=== PATIENT | female | born 2000 | race Caucasian/White ===

== ENCOUNTER 2019-02-21 17:40 | Emergency (ER) | payer MEDICAID, OTHER ==
[2019-02-21] MEDS ORDERED: Sodium Chloride 0.9% 1000 ML 1,000 ML IV STA (18:15)
[2019-02-21] MEDS ORDERED: TORAdol 30 mg Injection IV ONE ×2 (18:19→21:08)
[2019-02-21] MEDS ORDERED: Sodium Chloride 0.9% 1000 ML 1,000 ML ONE (18:35)
[2019-02-21] MEDS ORDERED: TORAdol 30 mg Injection ONE ×2 (18:35→21:16)
--- NOTE | 2019-02-21 18:42 | ERPHSYRPT ---
- History of Present Illness Source: patient Exam Limitations: no limitations Patient Subjective Stated Complaint: pt here for headach,runny nose ,nausea,sob at times today, no fever, Triage Nursing Assessment: pt walked in, alert, resp easy, skin w/d/p. moves all ext well, no edema. no cough Timing/Duration: yesterday Cough Quality/Degree: moderate, dry cough Possible Cause: no prior episodes Modifying Factors: Improves With: coughing Associated Symptoms: fever, chills, chest pain/soreness, cough, facial pain, headache, lightheadedness, muscle aches, nasal congestion, nasal drainage, sinus infection, sore throat, No shortness of breath Hx Influenza Vaccination/Date Given: No Hx Pneumococcal Vaccination/Date Given: No Immunizations Up to Date: Yes <MARCY HELMS - Last Filed: 02/21/19 18:37> <KERWIN OCONNOR - Last Filed: 02/21/19 22:20> - History of Present Illness Time Seen by Provider: 02/21/19 18:00 Physician History: 18 years old female presented to the ER with chief complaint of URI symptoms since yesterday. Patient about symptoms started with sinus congestion mild runny nose and frontal headache last night later on with mild scratchiness in the throat, postnasal drip and minimal coughing. She also has a low-grade fever or chills. Patient also reports to 3 episodes of loose stool but denies any watery stool or hematochezia. No vomiting. No abdominal pain. Patient reports this morning she woke up with more extensive frontal headache without any visual disturbance, numbness tingling or weakness. No pain in the neck or difficulty movements of the neck. Denies any sick contact. didnot have flu shot. (MARCY HELMS) Allergies/Adverse Reactions: No Known Drug Allergies Allergy (Verified 02/21/19 17:57) Home Medications: No Reportable Medications [No Reported Medications] 02/21/19 [History] - Review of Systems Constitutional: Fever, Chills, Fatigue Eyes: No Symptoms Ears, Nose, & Throat: Nose Congestion, Throat Pain Respiratory: Cough Cardiac: No Symptoms Abdominal/Gastrointestinal: Nausea, Diarrhea Genitourinary Symptoms: No Symptoms Musculoskeletal: Myalgias Skin: No Symptoms Neurological: No Symptoms Psychological: No Symptoms Endocrine: No Symptoms Hematologic/Lymphatic: No Symptoms Immunological/Allergic: No Symptoms <MARCY HELMS - Last Filed: 02/21/19 18:37> - Past Medical History Pertinent Past Medical History: No Psycho-Social History: Depression - Past Surgical History Past Surgical History: Yes Musculoskeletal: Orthopedic Surgery Other Surgical History: ingrown toe nail - Social History Smoking Status: Current some day smoker Exposure to second hand smoke: Yes Drug Use: none Patient Lives Alone: No - Female History Hx Last Menstrual Period: now Hx Now: No <MARCY HELMS - Last Filed: 02/21/19 18:37> - Physical Exam General Appearance: no apparent distress Eye Exam: PERRL/EOMI, eyes nml inspection Ears, Nose, Throat Exam: normal ENT inspection, TMs normal, pharyngeal erythema Neck Exam: normal inspection, non-tender, supple, full range of motion, No meningismus Respiratory Exam: normal breath sounds, lungs clear, No respiratory distress Cardiovascular Exam: regular rate/rhythm, normal heart sounds, normal peripheral pulses Gastrointestinal/Abdomen Exam: soft, normal bowel sounds, No tenderness, No distention Back Exam: normal inspection Extremity Exam: normal inspection, normal range of motion Neurologic Exam: alert, oriented x 3, cooperative Skin Exam: normal color SpO2 Interpretation: normal SpO2: 100 O2 Delivery: Room Air <JUAN HELMSR - Last Filed: 02/21/19 18:37> - Physical Exam Ears, Nose, Throat Exam: other (tender maxillary sinuses with inflamed turbinates but not purulent) Neck Exam: lymphadenopathy Respiratory Exam: airway intact <KERWIN OCONNOR - Last Filed: 02/21/19 22:20> - Nursing Vital Signs Nursing Vital Signs: Initial Vital Signs Temperature 99.3 F 02/21/19 17:52 Pulse Rate 85 02/21/19 17:52 Respiratory Rate 16 02/21/19 17:52 Blood Pressure 147/78 02/21/19 17:52 O2 Sat by Pulse Oximetry 99 02/21/19 17:52 Pain Scale Pain Intensity 6 - Radiology Exams Chest X-ray Interpretation: Reviewed by me, No Infiltrates <KERWIN OCONNOR - Last Filed: 02/21/19 22:20> Ordered Tests: Active Orders 24 hr Category Date Time Status PO Fluid Challenge STAT Care 02/21/19 20:20 Active CHEST 2 VIEWS (PA AND LAT) Stat Exams 02/21/19 18:16 Completed CBC W DIFF Stat Lab 02/21/19 18:48 Completed CMP Stat Lab 02/21/19 18:48 Completed HCG,QUALITATIVE URINE Stat Lab 02/21/19 18:45 Completed LIPASE Stat Lab 02/21/19 18:48 Completed Lactic Acid Stat Lab 02/21/19 20:28 Completed UA W/RFX UR CULTURE Stat Lab 02/21/19 18:45 Completed Medication Summary Discontinued Medications Generic Name Dose Route Start Last Admin Trade Name Garyq PRN Reason Stop Dose Admin Diphenhydramine HCl 50 mg 02/21/19 21:08 02/21/19 21:18 Benadryl 50 Mg/Ml IV 02/21/19 21:09 50 mg STAT ONE Administration Diphenhydramine HCl Confirm 02/21/19 21:16 Benadryl 50 Mg/Ml Administered 02/21/19 21:17 Dose 50 mg .ROUTE .STK-MED ONE Sodium Chloride 1,000 mls @ 999 mls/hr 02/21/19 18:15 02/21/19 18:38 Sodium Chloride 0.9% 1000 Ml IV 02/21/19 19:15 999 mls/hr .Q1H1M STA Administration Sodium Chloride Confirm 02/21/19 18:35 Sodium Chloride 0.9% 1000 Ml Administered 02/21/19 18:36 Dose 1,000 mls @ ud .ROUTE .STK-MED ONE Ketorolac Tromethamine 30 mg 02/21/19 18:19 02/21/19 18:38 Toradol 30 Mg Injection IV 02/21/19 18:20 30 mg STAT ONE Administration Ketorolac Tromethamine Confirm 02/21/19 18:35 Toradol 30 Mg Injection Administered 02/21/19 18:36 Dose 30 mg .ROUTE .STK-MED ONE Ketorolac Tromethamine 30 mg 02/21/19 21:08 02/21/19 21:18 Toradol 30 Mg Injection IV 02/21/19 21:09 30 mg STAT ONE Administration Ketorolac Tromethamine Confirm 02/21/19 21:16 Toradol 30 Mg Injection Administered 02/21/19 21:17 Dose 30 mg .ROUTE .STK-MED ONE Lab/Rad Data: Laboratory Result Diagrams 02/21/19 18:48 02/21/19 18:48 Laboratory Results 02/21/19 02/21/19 02/21/19 Range/Units 20:28 18:48 18:48 WBC (4.0-10.5) K/mm3 RBC (4.1-5.4) M/mm3 Hgb (12.0-16.0) gm/dl Hct (35-47) % MCV (78-100) fl MCH (26-32) pg MCHC (32-36) g/dl RDW (11.5-14.0) % Plt Count (150-450) K/mm3 MPV (6-9.5) fl Gran % (36.0-66.0) % Eos # (Auto) (0-0.5) Absolute Lymphs (auto) (1.0-4.6) Absolute Monos (auto) (0.0-1.3) Lymphocytes % (24.0-44.0) % Monocytes % (0.0-12.0) % Eosinophils % (0.00-5.0) % Basophils % (0.0-0.4) % Absolute Granulocytes (1.4-6.9) Basophils # (0-0.4) Sodium 143 (137-145) mmol/L Potassium 4.0 (3.5-5.1) mmol/L Chloride 107 (98-107) mmol/L Carbon Dioxide 27 (22-30) mmol/L Anion Gap 13.9 (5-15) MEQ/L BUN 7 (7-17) mg/dL Creatinine 0.60 (0.52-1.04) mg/dL Estimated GFR > 60.0 ML/MIN Glucose 92 (74-106) mg/dL Lactic Acid 0.8 (0.4-2.0) Calcium 9.4 (8.4-10.2) mg/dL Total Bilirubin 0.20 (0.2-1.3) mg/dL AST 20 (14-36) U/L ALT 16 (0-35) U/L Alkaline Phosphatase 102 (38-126) U/L Serum Total Protein 8.0 (6.3-8.2) g/dL Albumin 4.2 (3.5-5.0) g/dL Lipase 62 (23-300) U/L Urine Color (YELLOW) Urine Appearance (CLEAR) Urine pH (5-6) Ur Specific [place] (1.005-1.025) Urine Protein (Negative) Urine Ketones (NEGATIVE) Urine Blood (0-5) Yang/ul Urine Nitrite (NEGATIVE) Urine Bilirubin (NEGATIVE) Urine Urobilinogen (0-1) mg/dL Ur Leukocyte Esterase (NEGATIVE) U Epithel Cells (Auto) (FEW) /HPF Urine Mucus (Auto) (NEGATIVE) /HPF Urine Culture Reflexed (NO) Urine Glucose (NEGATIVE) mg/dL Urine HCG, Qual (Negative) Influenza Type A Ag (NEGATIVE) Influenza Type B Ag (NEGATIVE) RSV (PCR) (Negative) Group A Strep Antibody (NEGATIVE) 02/21/19 02/21/19 02/21/19 Range/Units 18:48 18:45 18:45 WBC 8.0 (4.0-10.5) K/mm3 RBC 4.59 (4.1-5.4) M/mm3 Hgb 13.1 (12.0-16.0) gm/dl Hct 39.8 (35-47) % MCV 86.7 (78-100) fl MCH 28.5 (26-32) pg MCHC 32.9 (32-36) g/dl RDW 13.8 (11.5-14.0) % Plt Count 224 (150-450) K/mm3 MPV 11.3 H (6-9.5) fl Gran % 75.3 H (36.0-66.0) % Eos # (Auto) 0.07 (0-0.5) Absolute Lymphs (auto) 1.31 (1.0-4.6) Absolute Monos (auto) 0.58 (0.0-1.3) Lymphocytes % 16.4 L (24.0-44.0) % Monocytes % 7.3 (0.0-12.0) % Eosinophils % 0.9 (0.00-5.0) % Basophils % 0.1 (0.0-0.4) % Absolute Granulocytes 6.01 (1.4-6.9) Basophils # 0.01 (0-0.4) Sodium (137-145) mmol/L Potassium (3.5-5.1) mmol/L Chloride (98-107) mmol/L Carbon Dioxide (22-30) mmol/L Anion Gap (5-15) MEQ/L BUN (7-17) mg/dL Creatinine (0.52-1.04) mg/dL Estimated GFR ML/MIN Glucose (74-106) mg/dL Lactic Acid (0.4-2.0) Calcium (8.4-10.2) mg/dL Total Bilirubin (0.2-1.3) mg/dL AST (14-36) U/L ALT (0-35) U/L Alkaline Phosphatase (38-126) U/L Serum Total Protein (6.3-8.2) g/dL Albumin (3.5-5.0) g/dL Lipase (23-300) U/L Urine Color COLORLESS (YELLOW) Urine Appearance CLEAR (CLEAR) Urine pH 7.0 (5-6) Ur Specific [place] 1.002 (1.005-1.025) Urine Protein NEGATIVE (Negative) Urine Ketones NEGATIVE (NEGATIVE) Urine Blood NEGATIVE (0-5) Yang/ul Urine Nitrite NEGATIVE (NEGATIVE) Urine Bilirubin NEGATIVE (NEGATIVE) Urine Urobilinogen NEGATIVE (0-1) mg/dL Ur Leukocyte Esterase NEGATIVE (NEGATIVE) U Epithel Cells (Auto) NONE (FEW) /HPF Urine Mucus (Auto) SLIGHT (NEGATIVE) /HPF Urine Culture Reflexed NO (NO) Urine Glucose NEGATIVE (NEGATIVE) mg/dL Urine HCG, Qual NEGATIVE (Negative) Influenza Type A Ag (NEGATIVE) Influenza Type B Ag (NEGATIVE) RSV (PCR) (Negative) Group A Strep Antibody (NEGATIVE) 02/21/19 Range/Units 18:40 WBC (4.0-10.5) K/mm3 RBC (4.1-5.4) M/mm3 Hgb (12.0-16.0) gm/dl Hct (35-47) % MCV (78-100) fl MCH (26-32) pg MCHC (32-36) g/dl RDW (11.5-14.0) % Plt Count (150-450) K/mm3 MPV (6-9.5) fl Gran % (36.0-66.0) % Eos # (Auto) (0-0.5) Absolute Lymphs (auto) (1.0-4.6) Absolute Monos (auto) (0.0-1.3) Lymphocytes % (24.0-44.0) % Monocytes % (0.0-12.0) % Eosinophils % (0.00-5.0) % Basophils % (0.0-0.4) % Absolute Granulocytes (1.4-6.9) Basophils # (0-0.4) Sodium (137-145) mmol/L Potassium (3.5-5.1) mmol/L Chloride (98-107) mmol/L Carbon Dioxide (22-30) mmol/L Anion Gap (5-15) MEQ/L BUN (7-17) mg/dL Creatinine (0.52-1.04) mg/dL Estimated GFR ML/MIN Glucose (74-106) mg/dL Lactic Acid (0.4-2.0) Calcium (8.4-10.2) mg/dL Total Bilirubin (0.2-1.3) mg/dL AST (14-36) U/L ALT (0-35) U/L Alkaline Phosphatase (38-126) U/L Serum Total Protein (6.3-8.2) g/dL Albumin (3.5-5.0) g/dL Lipase (23-300) U/L Urine Color (YELLOW) Urine Appearance (CLEAR) Urine pH (5-6) Ur Specific [place] (1.005-1.025) Urine Protein (Negative) Urine Ketones (NEGATIVE) Urine Blood (0-5) Yang/ul Urine Nitrite (NEGATIVE) Urine Bilirubin (NEGATIVE) Urine Urobilinogen (0-1) mg/dL Ur Leukocyte Esterase (NEGATIVE) U Epithel Cells (Auto) (FEW) /HPF Urine Mucus (Auto) (NEGATIVE) /HPF Urine Culture Reflexed (NO) Urine Glucose (NEGATIVE) mg/dL Urine HCG, Qual (Negative) Influenza Type A Ag NEGATIVE (NEGATIVE) Influenza Type B Ag NEGATIVE (NEGATIVE) RSV (PCR) NEGATIVE (Negative) Group A Strep Antibody NEGATIVE (NEGATIVE) - Progress Blood Culture(s) Obtained: No <MARCY HELMS - Last Filed: 02/21/19 18:37> - Progress Progress: improved, re-examined Air Movement: good Antibiotics given: No Counseled pt/family regarding: lab results, diagnosis, need for follow-up, rad results <KERWIN OCONNOR - Last Filed: 02/21/19 22:20> - Progress Progress Note: 18 years old is evaluated for URI symptoms. She is given IV fluid and Toradol. Workup is pending at present, care is transferred to Dr. Oconnor due to end of my shift. 02/21/19 18:51 (MARCY HELMS) 02/21/19 19:08 pt is taken over at change of shift from Dr Helms after discussion of pending labs and cxr , seems well and will also try po challenge later.abd nontender without peritoneal signs or rebound 02/21/19 21:08 pt is better but just has headache and runny nose now - percussion of the sinuses reproduces the headache pain each time 02/21/19 22:12 the pt was observed to be certain the headache was resolving and this required some additional time in ER; 02/21/19 22:16 (KERWIN OCONNOR) <MARCY HELMS - Last Filed: 02/21/19 18:37> - Departure Departure Disposition: Home Critical Care Time: No <KERWIN OCONNOR - Last Filed: 02/21/19 22:20> - Departure Clinical Impression: Sinusitis, viral like symptoms Condition: Good Referrals: DOCTOR,NO FAMILY [Primary Care Provider] - Instructions: Sinusitis, Adult (DC), Viral Syndrome (DC) Additional Instructions: The initial treatment of mild sinus infections is decongestants and waiting prior to antibiotics as they are most often not needed. followup with your doctor to continue workup if symptoms persist and return meantime if not improving or any symptoms of concern such as fever, vomiting, dizziness or other concerns. followup with your for your slightly elevated blood pressure as well;
[2019-02-21 19:04] LABS: Absolute Neutrophil Ct (ANC) 6.01 (1.4-6.9); BASOPHIL % 0.1 % (0.0-0.4); Basophil (Absolute #) 0.01 (0-0.4); Eosinophil % 0.9 % (0.00-5.0); Eosinophil (Absolute #) 0.07 (0-0.5); Hematocrit 39.8 % (35-47); Hemoglobin 13.1 gm/dl (12.0-16.0); Lymphocyte (Absolute #) 1.31 (1.0-4.6); Lymphocytes % 16.4 % (24.0-44.0); Mean Cell Volume 86.7 fl (78-100); Mean Corpuscular Hemoglobin 28.5 pg (26-32); Mean Corpuscular Hgb Concent. 32.9 g/dl (32-36); Mean Platelet Volume 11.3 fl (6-9.5); Monocyte (Absolute #) 0.58 (0.0-1.3); Monocytes % 7.3 % (0.0-12.0); Neutrophil % 75.3 % (36.0-66.0); Platelet Count 224 K/mm3 (150-450); Red Blood Count 4.59 M/mm3 (4.1-5.4); Red Cell Distribution Width 13.8 % (11.5-14.0)
[2019-02-21 19:16] LABS: Appearance CLEAR (CLEAR); Bilirubin NEGATIVE (NEGATIVE); Blood NEGATIVE Ery/ul (0-5); Glucose NEGATIVE (NEGATIVE); Ketones NEGATIVE (NEGATIVE); Leukocyte Esterase NEGATIVE (NEGATIVE); Mucus SLIGHT /HPF (NEGATIVE); Nitrite NEGATIVE (NEGATIVE); Protein,Urine Dip NEGATIVE (Negative); Specific Gravity 1.002 (1.005-1.025); Urobilinogen NEGATIVE mg/dL (0-1)
[2019-02-21 19:16] LABS: ALBUMIN 4.2 g/dL (3.5-5.0); ALKALINE PHOSPHATASE 102 U/L (38-126); ANION GAP 13.9 MEQ/L (5-15); BLOOD UREA NITROGEN 7 mg/dL (7-17); CHLORIDE 107 mmol/L (98-107); Calcium 9.4 mg/dL (8.4-10.2); Carbon Dioxide 27 mmol/L (22-30); Glucose 92 mg/dL (74-106); SGOT/AST 20 U/L (14-36); SGPT/ALT 16 U/L (0-35); SODIUM 143 mmol/L (137-145)
[2019-02-21 19:19] LABS: Group A Strep NEGATIVE (NEGATIVE); INFLUENZA A NEGATIVE (NEGATIVE); INFLUENZA B NEGATIVE (NEGATIVE); RESPIRATORY SYNCTIAL VIRUS NEGATIVE (Negative)
[2019-02-21 19:22] VITALS: BP 143/72; PULSE 88; O2SAT 98
[2019-02-21] MEDS ORDERED: BENADRYL 50 MG/ML IV ONE (21:08)
[2019-02-21] MEDS ORDERED: BENADRYL 50 MG/ML ONE (21:16)
--- NOTE | 2019-02-21 21:53 | XRAY ---
Indication: Fever and cough. Comparison: None PA/lateral chest demonstrates normal heart, lungs, and bony thorax.
== END 2019-02-21 22:30 | disposition home or self-care (01) ==
LOC: ED 17:40
DX: J32.9 Chronic sinusitis, unspecified (principal); B34.9 Viral infection, unspecified
CPT/HCPCS: 36415; 71046; 80053; 81001; 83605; 83690; 84703; 85025; 87631; 87651; 96360; 96374; 96375; 96376; 99284; J1200; J1885